=== PATIENT | female | born 1965 | race Caucasian/White ===

== ENCOUNTER → 2023-12-01 14:22 | Outpatient (BNVA) | payer OTHER, SELFPAY | PROVIDERS: PCP Internal Medicine; Visit Provider Specialist | DX: R29.90 Unspecified symptoms and signs involving the nervous system (principal) | CPT/HCPCS: 99204; 99205 ==

== ENCOUNTER → 2024-02-09 14:51 | Outpatient (BNVA) | payer OTHER, SELFPAY | PROVIDERS: PCP Internal Medicine; Visit Provider Specialist | DX: G37.3 Acute transverse myelitis in demyelinating disease of central nervous system (principal); R29.90 Unspecified symptoms and signs involving the nervous system | CPT/HCPCS: 64644; 99214; 99215; J0585 ==

== ENCOUNTER → 2024-05-03 14:30 | Outpatient (BNVA) | payer OTHER, SELFPAY | PROVIDERS: PCP Internal Medicine; Visit Provider Specialist | DX: G37.3 Acute transverse myelitis in demyelinating disease of central nervous system (principal); R29.90 Unspecified symptoms and signs involving the nervous system | CPT/HCPCS: 36415; 64644; 83516; 99214; J0585 ==

== ENCOUNTER → 2024-10-05 15:16 | Outpatient (BNVA) | payer OTHER, SELFPAY | PROVIDERS: PCP Internal Medicine; Visit Provider Specialist | DX: G37.3 Acute transverse myelitis in demyelinating disease of central nervous system (principal); R29.90 Unspecified symptoms and signs involving the nervous system | CPT/HCPCS: 64644; 99214; J0585 ==

== ENCOUNTER → 2024-11-13 13:25 | Outpatient (BNVA) | payer OTHER, SELFPAY | PROVIDERS: PCP Internal Medicine; Referring Provider Internal Medicine; Visit Provider Nurse Practitioner Family | DX: L21.8 Other seborrheic dermatitis (principal); L30.8 Other specified dermatitis; L81.0 Postinflammatory hyperpigmentation | CPT/HCPCS: 99204 ==

== ENCOUNTER → 2024-12-13 14:11 | Outpatient (BNVA) | payer OTHER, SELFPAY | PROVIDERS: PCP Internal Medicine; Visit Provider Nurse Practitioner Family | DX: L21.8 Other seborrheic dermatitis (principal); L30.8 Other specified dermatitis; L81.0 Postinflammatory hyperpigmentation; D22.4 Melanocytic nevi of scalp and neck | CPT/HCPCS: 99214 ==

== ENCOUNTER → 2025-01-25 15:17 | Outpatient (BNVA) | payer OTHER, SELFPAY | PROVIDERS: PCP Internal Medicine; Visit Provider Specialist | DX: G37.3 Acute transverse myelitis in demyelinating disease of central nervous system (principal) | CPT/HCPCS: 64644; J0585; J9999 ==

== ENCOUNTER → 2025-05-16 14:01 | Outpatient (BNVA) | payer OTHER, SELFPAY | PROVIDERS: PCP Internal Medicine; Visit Provider Specialist | DX: G37.3 Acute transverse myelitis in demyelinating disease of central nervous system (principal) | CPT/HCPCS: 64644; 99214; J0585; J9999 ==

== ENCOUNTER → 2025-07-24 11:22 | Outpatient (BNVA) | payer OTHER, SELFPAY | PROVIDERS: PCP Internal Medicine; Visit Provider Nurse Practitioner Family | DX: L30.8 Other specified dermatitis (principal); L21.8 Other seborrheic dermatitis; D22.4 Melanocytic nevi of scalp and neck | CPT/HCPCS: 99214 ==